=== PATIENT | female | born 1975 | race African-American/Black ===

== ENCOUNTER 2021-01-28 17:22 | Emergency (ER) | payer OTHER ==
[~2021-01-28] VITALS: Ht 165.1 cm; Wt 86.2 kg
[~2021-01-28 17:22] MED LIST: ALBUTEROL2.5 MG/0.5 INH; ASPIRIN81 M2 PO; AZO STANDARD95 MG PO; BACTRIM DS TAB1 EACH PO; COLACE100 MG PO; HYDROCERIN LOT236 ML TOP; KEPPRA250 MG PO; MAGNESIUM CITRATE; NORCO 5-325 TA1 EACH PO; PANTOPRAZOLE SO40 M1 PO; PEPCID20 MG; PROPRANOLOL 1010 MG PO; ROBITUSSIN100 MG/53 PO; SCOPOLAMINE1 EACH TRANSDERM; SENNA8.6 MG PO; UNKNOWN ANTIBIOTIC; VITAMIN D1000 UNI1 PO; ZOFRAN4 MG PO
[2021-01-28] MEDS ORDERED: CYCLOBENZAPRINE5 MG PO (21:13)
[2021-01-28] MEDS ORDERED: MOBIC15 MG PO (21:13)
[2021-01-28 21:24] VITALS: BP 151/82
== END 2021-01-28 21:26 | disposition home or self-care (01) ==
LOC: ER 17:22
DX: G44.209 Tension-type headache, unspecified, not intractable (principal); J45.909 Unspecified asthma, uncomplicated; K21.9 Gastro-esophageal reflux disease without esophagitis; Z88.1 Allergy status to other antibiotic agents; Z90.711 Acquired absence of uterus with remaining cervical stump